=== PATIENT | male | born 2000 ===

== ENCOUNTER 2020-06-14 02:29 | Emergency (ER) | payer OTHER, SELFPAY | END 2020-06-14 03:03 | LOC: ERS 02:29 | DX: T74.11XA Adult physical abuse, confirmed, initial encounter (principal); F17.200 Nicotine dependence, unspecified, uncomplicated; Y04.0XXA Assault by unarmed brawl or fight, initial encounter; Y92.29 Other specified public building as the place of occurrence of the external cause | CPT/HCPCS: 99284 ==